=== PATIENT | male | born 1950 | race Two or more races ===

== ENCOUNTER 2016-09-22 13:26 | Inpatient (IN) | payer OTHER ==
[~2016-09-22] VITALS: Ht 165.1 cm; Wt 77.3 kg
--- NOTE | ~2016-09-22 | ESTC ---
Cardiac Perfusion Imaging Demographics Patient Name ODALIS NEWELL Gender Male Patient Number [id number] Race Other Visit Number [id number] Ethnicity [employer] ID Room Number G6316 Accession Number [id number] Height 65 inches Date of 1950 Weight 173 pounds Teodora Zavala Date of study 09/23/2016 Physician Supervising /BAMBI GALVAN Technologist Tila Murphy MD Ordering Physician Tip Benito A wetlands technician Stress ECG Reading Tip Clinton Nurse Emory Stephens Physician A MD SORAYA Albarran Medications Reviewed with Patient prior to Procedure. Procedure Procedure Type: Nuclear Stress Test:Exercise Procedure Start time: 09/23/2016 09:30 Indications: Angina. Risk Factors The patient risk factors include:physical activity, former tobacco use, hypercholesterolemia and dyslipidemia. Conclusions Summary Perfusion Images: The overall quality of the study is good. Left ventricular cavity is noted to be normal on the stress and rest studies. There is no evidence of abnormal lung activity. The right ventricle is not visualized and cannot be assessed. Stress SPECT images and Rest SPECT images demonstrate homogenous tracer distribution throughout the myocardium. Gated SPECT imaging reveals normal myocardial thickening and wall motion. The left ventricular ejection fraction was calculated to be 70%. Impression ECG portion of stress test is clinically negative for ischemia by diagnostic criteria. Myocardial perfusion imaging is normal. Overall left ventricular systolic function was normal without regional wall motion abnormalities. There are no previous studies for comparison. Stress Protocols Resting ECG Normal sinus rhythm. Pre-stress physical exam: Patient assessed by Dr Whelan prior to testing. Stress Protocol:Exercise Predicted HR: 155 bpm Test duration:07:15 min Reason for termination:Target heart rate ECG Findings No ECG changes suggestive of ischemia. Arrhythmias One couplet Symptoms No cardiovascular symptoms with maximal exercise. Stress Interpretation Appropriate hemodynamic response to exercise. No significant ST-T wave changes with exercise. EKG portion is negative for ischemia by diagnostic criteria. The Serna Treadmill score was 7 .This corresponds to a low risk stress test. Imaging Results Summed scores - Summed stress score: 5 - Summed rest score: 6 - Summed difference score: -1 Stress ejection Ejection fraction:70 % EDV :98 ml ESV :29 ml Stroke volume :69 ml LV mass :135 gr Imaging Protocols Rest Stress Isotope:Tc99m Sestamibi IV Isotope: Tc99m Sestamibi IV Isotope dose:12.75 mCi Isotope dose:39.8 mCi Date:09/23/2016 06:57 Date:09/23/2016 09:28 Technique: SPECT Technique: Gated Supine SPECT Supine IV remains in place after procedure. Scan Time:45-60 minutes post Scan Time:45-60 minutes post injection injection Medical History Admission Data Admission date: 09/22/2016 Admission Time: 13:26 Hospital Status: Inpatient. Signatures dtt: BRANDON HOLLAND dtd: 09/23/16 0987 Physician Self Edit
--- NOTE | ~2016-09-22 | ECHO ---
Transthoracic Echocardiography Report (TTE) Demographics Patient Name REECE JACOBO Date of Study 09/23/2016 Patient Number [id number] Visit Number [id number] Date of 1950 Room Number G6316 Gender Male Number Age 66 year(s) Referring Tip Clinton Tactical Debriefer Allyson White, Physician A RT,RVT,RDCS Physician Interpreting Tip Clinton Management Specialist Physician A Supervising Ordering Tip Clinton MD/MLP Physician A Nurse Stress Front Services Agent Conclusions Contractility Score Summary Normal Left Ventricular contractility was noted. Summary The estimated left ventricular ejection fraction is 65-70%. Mild concentric left ventricular hypertrophy. Diastolic assessment reveals Grade I diastolic dysfunction. Procedure Type of Study TTE procedure:2D Echocardiogram, M-Mode, Doppler , Color Doppler. Procedure Date Date: 09/23/2016 Start: 07:18 AM Study Location: Inpatient Portable Technical Quality: Adequate visualization Indications:Chest pain. Appropriate Use Criteria: 9 Patient Status: Routine HR: 63 bpm BP: 106/53 mmHg M-Mode/2D Measurements LV Diastolic Dimension: 4.23 cm LV Systolic Dimension: 1.55 cm LV Septum Diastolic: 1.58 cm LV PW Systolic: 0.08 cm LV PW Diastolic: 1.11 cm AO Root Dimension: 3.6 cm Cardiac Output: 5.27 l/min AV Cusp Separation: 2.1 cm RV Diastolic Dimension: 3.45 cm EF Estimated: 70 % LVOT: 2.2 cm LVOT VTI: 22 cm LV Stroke volume: 83.59 ml Doppler Measurements AV Peak Velocity: 1.11 m/s MV Peak E-Wave: 0.74 m/s AV Peak Gradient: 4.93 mmHg MV Peak A-Wave: 0.76 m/s AV Mean Gradient: 2 mmHg MV E/A Ratio: 0.97 LVOT Peak Velocity: 0.95 m/s MV P1/2t: 96 msec PV Peak Velocity: 0.73 m/s E' Lateral Velocity: 0.11 m/s PV Peak Gradient: 2.11 mmHg MV E/E' Ratio: 7 Findings Left Ventricle Mild concentric left ventricular hypertrophy. Diastolic assessment reveals Grade I diastolic dysfunction. Right Ventricle Normal right ventricle structure and function. Left Atrium Normal left atrial size. Right Atrium Normal right atrial size. Mitral Valve Normal mitral valve structure and function. Aortic Valve Normal aortic valve structure and function. Tricuspid Valve Normal tricuspid valve structure and function. Pulmonic Valve Normal pulmonic valve structure and function. Pericardial Effusion No evidence of pericardial effusion. Miscellaneous Visualized portions of the aortic root and ascending aorta appear normal in size. Pleural Effusion No evidence of pleural effusion. Contractility Score LV regional wall motion:(0-Non visualized 1-Normal 2-Hypokinesis 3-Akinesis 4-Dyskinesis 5-Aneurysm) Signature dtt: Chris Whelan dtd: 09/23/16 0718 Physician Self Edit
--- NOTE | ~2016-09-22 | CON ---
PATIENT'S NAME: ODALIS, [facility] AGE: 66 Y [address] ROOM: [place] [address] LOCATION: GPCU ADMIT DATE: 09/22/2016 Consultation DISCHARGE DATE: FAMILY PHYSICIAN: Mitra Adams MD ATTENDING PHYSICIAN: Pal Subramanian DATE OF CONSULTATION: 09/22/2016 REFERRING PHYSICIAN: Chris Jurado MD REQUESTING PHYSICIAN: Pal Subramanian M.D. REASON FOR CONSULTATION: Chest pain. HISTORY OF PRESENT ILLNESS: The patient was admitted today after presenting to [facility] with the above complaint. He says that he was at work at [employer] and had precordial pressure with some radiation to the left arm. He denies shortness of breath, diaphoresis, nausea, vomiting, or loss of consciousness. Initially, the patient denied any other episodes, but his contributed that he had an episode a month ago and a week ago. On both occasions, she gave him baby aspirin, but he refused to go to the hospital or the clinic. PAST MEDICAL HISTORY: He is in fairly good health. MEDICATIONS: He is taking simvastatin for elevated cholesterol. No other medications. REVIEW OF SYSTEMS: Only positive was enlarged prostate and nocturia. Need glasses for impaired vision. Remaining systems are negative. PAST SURGICAL HISTORY: Appendectomy many years ago and finger fracture repair. FAMILY HISTORY: His father from Alzheimer's. His mother is alive at 82, 2 years ago she was diagnosed with pancreatic cancer. OUTPATIENT MEDICATIONS: 1. Simvastatin 40 mg daily. 2. Fluticasone spray daily. 3. Zolpidem 5 mg at bedtime. PATIENT'S NAME: ODALIS [facility] AGE: 66 Y [address] ROOM: [place] [address] LOCATION: GPCU ADMIT DATE: 09/22/2016 Consultation DISCHARGE DATE: FAMILY PHYSICIAN: Mitra Adams MD ATTENDING PHYSICIAN: Pal Subramanian PHYSICAL EXAMINATION: GENERAL: Pleasant, 66-year-old man. He is alert and oriented. Speaks accented German, but communicates well. VITAL SIGNS: Blood pressure 120/75, pulse 68, and temperature 97.5. HEAD: Normocephalic and atraumatic. No xanthelasmas. NECK: Supple. There is no jugular venous distention. No carotid bruits. CHEST: Lungs are clear. HEART: Regular. There is a fourth heart sound. No S3. No significant murmur. ABDOMEN: Soft. Nontender. LOWER EXTREMITIES: No peripheral edema. DIAGNOSTIC STUDIES: Troponins were measured at the [facility] and after arrival here and negative. His proBNP is below the detection level. His electrocardiogram at the clinic was normal. PLAN: We will continue serial enzymes and schedule a nuclear stress test in a.m. Also obtain an echocardiogram. Since his admit, the patient had a CTA of the chest with PE protocol that showed no thromboembolic disease and may be a small bleb at the apex of the left lung. Thank you for allowing me to participate in the care of Mr. Moralez. PANAYOTIS-GIULIANO JURADO MD PE/modl /[id number] d: 09/22/165 t: 10/03/16 1045, CONSULTATION REPORT
[2016-09-22] MEDS ORDERED: FLONASE 50 MCG/16 GM NOSE ×2 (14:51→14:52)
[2016-09-22] MEDS ORDERED: ZOCOR40 MG PO (14:51)
[2016-09-22] MEDS ORDERED: AMBIEN5 MG PO (14:52)
[2016-09-22 15:55] LABS: CPK 142 IU/L (35-332)
[2016-09-22 21:48] LABS: CPK 125 IU/L (35-332)
[2016-09-23 03:45] LABS: CPK 101 IU/L (35-332)
[2016-09-23] MEDS ORDERED: ASPIRIN (CHILDR81 MG PO (19:34)
[2016-09-23] MEDS ORDERED: LOPRESSOR25 MG PO (19:35)
== END 2016-09-23 20:05 | disposition disaster alternative care site (69) | DRG 313 ==
LOC: GPCU 13:26 → EDSTATUS 13:30 → GPCU 09-23 20:05
PROVIDERS: Internal Medicine Cardiovascular Disease; ADMIT Obstetrics & Gynecology Obstetrics
DX: R07.9 Chest pain, unspecified (principal); I50.30 Unspecified diastolic (congestive) heart failure; E78.5 Hyperlipidemia, unspecified; J43.9 Emphysema, unspecified; I51.7 Cardiomegaly; N40.0 Benign prostatic hyperplasia without lower urinary tract symptoms; Z87.891 Personal history of nicotine dependence
CPT/HCPCS: A9500; J1650; Q9967